=== PATIENT | male | born 2000 | race Caucasian/White ===

== ENCOUNTER 2019-07-02 21:51 | Emergency (ER) | payer OTHER, SELFPAY ==
[2019-07-02 21:52] VITALS: BP 138/74; PULSE 116; RESP 18; TEMP 36.9; O2SAT 98; BMI 25.2
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
[2019-07-02] MEDS: HYDROcodone Bitartrate/Apap 5/325 Tablet PO (23:09)
== END 2019-07-03 00:41 | disposition home or self-care (01) ==
PROVIDERS: Emergency Provider Emergency Medicine
DX: S82.61XA Displaced fracture of lateral malleolus of right fibula, initial encounter for closed fracture (principal); V86.99XA Unspecified occupant of other special all-terrain or other off-road motor vehicle injured in nontraffic accident, initial encounter; Y93.89 Activity, other specified; Y92.9 Unspecified place or not applicable; Y99.9 Unspecified external cause status
CPT/HCPCS: 29515; 73610; 73700; 99284

== ENCOUNTER 2019-07-16 08:27 | Day surgery (SDC) | payer OTHER, SELFPAY ==
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
--- NOTE | 2019-07-13 11:17 | EKG12_ITS ---
Test Reason : PRE OP Blood Pressure : / mmHG Vent. Rate : 070 BPM Atrial Rate : 070 BPM P-R Int : 132 ms QRS Dur : 080 ms QT Int : 360 ms P-R-T Axes : 048 082 047 degrees QTc Int : 388 ms Normal sinus rhythm Normal ECG Confirmed by ROXIE NAM, MAISHA ([id number]), continuity editor DAGMAR LORA ([id number] on 07/14/2019 3:32:54 PM Referred By: Casey Lora Confirmed By:MAISHA FAUSTIN MD
[2019-07-13 12:37] LABS: Absolute Lymphocyte Count 1.18 X10^3/uL (0.83-4.51); Absolute Neutrophil Count 4.6 X10^3/uL (2.0-7.7); Basophil# 0.02 X10^3/uL; Basophil% 0.3 % (0-1); Eosinophil# 0.08 X10^3/uL; Eosinophils% 1.2 % (0-5); Hematocrit 44.8 % (40-54); Hemoglobin 15.5 g/dL (13.0-16.5); Lymphocyte # 1.18 X10^3/ul (4.0); Lymphocyte % 17.9 % (19-41); Mean Corp Hgb Conc 34.6 g/dL (32-36); Mean Corpuscular Hgb 30.6 pg (27.0-32.0); Mean Corpuscular Volume 88.5 fL (80-94); Mean Platelet Vol. 10.1 fl (6.2-12.0); Monocyte% 10.6 % (0-10); NRBC Flagged by Analyzer 0 % (0-5); Neutrophil # 4.61 X10^3/uL (2.7-7.7); Neutrophil % 69.7 % (47-70); Platelet Count 276 K/mm3 (150-450); RBC Distribution Width CV 12.7 % (11.6-14.6); RBC Distribution Width SD 41.3 fl (35.1-43.9); Red Blood Count 5.06 M/mm3 (4.6-6.2); White Blood Count 6.6 K/mm3 (4.4-11.0)
[2019-07-13 12:53] LABS: International Normalized Ratio 1.1; Prothrombin Time (Protime)PT. 14.2 SECONDS (11.7-14.9)
[2019-07-13 12:54] LABS: Partial Thromboplast Time 32.8 Seconds (24.1-36.2)
[2019-07-13 13:05] LABS: Anion Gap 3 (5-15); BUN 10 mg/dL (7-18); BUN/Creat Ratio 10.1 RATIO (10-20); Chloride 103 mmol/L (98-107); Creatinine, Serum 0.99 mg/dL (0.70-1.30); EST Glomerular Filtration Rate 101 mL/min (>60); Est Glom Filt Rate - Afr Amer 122 mL/min (>60); Glucose 96 mg/dL (74-106); Potassium 3.8 mmol/L (3.5-5.1); Sodium Level 137 mmol/L (136-145)
[2019-07-16 08:49] VITALS: BP 121/74; PULSE 85; RESP 16; TEMP 36.8; O2SAT 96; BMI 26.4
[2019-07-16] MEDS: Lactated Ringers 1,000 ML 100 ML IV (09:14)
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
[2019-07-16] MEDS: Cefazolin 2 GM in 0.9% Normal Saline 100 ML IV (10:03)
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
--- NOTE | 2019-07-16 13:46 | DCINST_ITS ---
Discharge Diet: No Restrictions Discharge Activity: May Not Drive, May Not Shower, Use Walker, Use Crutches Weight Bearing Status: No weight bearing Keep extremity elevated above heart level: Right Leg Call your doctor if your incision/area has: Sudden Increased Bleeding Call your doctor if you observe: Fever of 101 or Higher, Shortness of breath, Chest pain, Increased palpitations (irregular heartbeat), Calf discomfort, Uncontrolled pain Cleanse incision/area with: Keep Dressing Clean & Dry Additional Dressing/Incision Instructions:: Keep dressing clean, dry and intact. do not get dressing wet. If get dressing wet, call office immediately. Ice behind right knee 20 minutes on 20 minutes off every hour while awake until follow up appointment. Elevate right foot above level of heart at all times. Take pain medications, aspirin, and doxycycline (antibiotic) as prescribed. Can supplement pain with ibuprofen as instructed. No standing or walking on right foot. Use crutches for assistance. Allergies/Adverse Reactions: Allergies SANTOS DISH SOAP Allergy (Uncoded 07/16/19 08:47) Itching Medications to take at Discharge Aspirin 325 mg PO DAILY@0800 07/09/19 Primary Care Physician: Care Physician,No Primary [Primary Care Provider] - Test Results: Test results from this visit will be discussed in further detail at your follow- up appointment, if applicable. Please Follow Up With: Casey Lora DPM When: in 1 week Proposed Discharge Date: 07/16/19
[2019-07-16 13:58] VITALS: BP 116/52; BP 121/74; PULSE 84; RESP 16; TEMP 37.3; O2SAT 97
[2019-07-16 14:05] VITALS: BP 108/56; BP 121/74; PULSE 77; RESP 16; O2SAT 98
[2019-07-16 14:15] VITALS: BP 108/56; BP 121/74; PULSE 74; RESP 16; O2SAT 96
[2019-07-16 14:30] VITALS: BP 112/66; BP 121/74; PULSE 84; RESP 16; TEMP 37.3; O2SAT 96
[2019-07-16 15:08] VITALS: BP 121/74
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
== END 2019-07-16 15:14 | disposition home or self-care (01) ==
LOC: SDC 08:29 → AC 08:30
PROVIDERS: Referring Provider Podiatrist Foot & Ankle Surgery; Visit Provider Podiatrist Foot & Ankle Surgery
DX: S92.121A Displaced fracture of body of right talus, initial encounter for closed fracture (principal); S82.61XA Displaced fracture of lateral malleolus of right fibula, initial encounter for closed fracture; M21.961 Unspecified acquired deformity of right lower leg; Z53.33 Arthroscopic surgical procedure converted to open procedure; V89.2XXA Person injured in unspecified motor-vehicle accident, traffic, initial encounter; Y93.9 Activity, unspecified; Y92.9 Unspecified place or not applicable; J45.990 Exercise induced bronchospasm; F17.200 Nicotine dependence, unspecified, uncomplicated
CPT/HCPCS: 27792; 28445; 28899; 29898; 64450; 36415; 71046; 73610; 76000; 80048; 85025; 85610; 85730; 93005; C1713; J7120; A4216; J2405

== ENCOUNTER → 2019-09-21 13:08 | Outpatient (CLI) | payer OTHER, SELFPAY ==
--- NOTE | 2019-09-21 13:11 | CT_ITS ---
STUDY: CT RIGHT ANKLE REASON FOR EXAM: Male, 19 years old. DISP FX LATERAL MALLEOLUS OF R FIBULA RADIATION DOSAGE (If Supplied By Facility): CTDIvol = ( 15.35 ) mGy, DLP = ( 328.12 ) mGycm. Individualized dose optimization techniques were used for this CT.? TECHNIQUE: Noncontrast bone protocol CT of the right ankle was performed without contrast. 2-D reformats were performed by the technologist. A radiation dose optimization technique was used for this scan. COMPARISON: CT RIGHT ANKLE-July 02, 2019 FINDINGS: The patient status post open reduction internal fixation (ORIF) of the comminuted fractures of the lateral malleolus. There is metallic plate with multiple transfixing screws. The fracture line is become indistinct indicating interval partial healing with possible osseous fusion along the posterior margin of the comminuted fracture the fibula (series 601, image 10). There is a transfixing screw entering the anterolateral body of the talus, transfixing the patient''s previously reported nondisplaced, comminuted, predominantly vertically oriented fracture of the talus. The fracture fragments are in anatomic alignment with apparent osseous fusion. There is an avulsed longitudinal fracture of the medial talar tubercle (axial series 3 image 48), with cortication and nonunion. Normal medial malleolus. There are corticated osseous structures adjacent to the tip of the medial malleolus consistent with an osseous avulsion. There is a normal tibiotalar articulation. Normal posterior subtalar, talonavicular and calcaneocuboid articulations. CT/Extremity Lower without Contra IMPRESSION: 1. Open reduction internal fixation (ORIF) of a comminuted fracture of the lateral malleolus with minimal osseous fusion along the posterior margin of the fractured fragments. 2. Transfixing screw within the talus with complete osseous union of the patient''s previously reported fracture. 3. 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 4. Cortical avulsions of the inferior tip of the medial malleolus with nonunion. 5. Normal tibiotalar, subtalar, talonavicular and calcaneocuboid articulations. Electronically Signed: Alfredo Acevedo DO at 14:17 EDT Tel , Service support ,
== END ==
PROVIDERS: Referring Provider Podiatrist Foot & Ankle Surgery; Visit Provider Podiatrist Foot & Ankle Surgery
DX: S82.61XD Displaced fracture of lateral malleolus of right fibula, subsequent encounter for closed fracture with routine healing (principal); S92.121D Displaced fracture of body of right talus, subsequent encounter for fracture with routine healing
CPT/HCPCS: 73700